=== PATIENT | female | born 1955 | race Caucasian/White ===

== ENCOUNTER 2025-11-01 14:39 | Inpatient (IN) ==
[2025-11-01 15:47] LABS: Appearance Urine Clear (Clear); Bacteria Urine Automated None Seen (None Seen); Glucose Urine UA Negative (Negative); RBC Urine Automated 0-2 /hpf (0-2); WBC Urine Automated 0-5 /hpf (0-5)
[2025-11-01 16:04] LABS: Hematocrit (blood only) 26.7 % (37.0-47.0); Hemoglobin 9.0 g/dL (12.0-16.0); Mean Corpuscular Hemoglobin 32.7 pg (25.0-34.0); Mean Corpuscular Volume 97.1 fL (80.0-100.0); Platelet Count 41 K/uL (130-400); RDW Standard Deviation 61.4 fL (36.4-46.3); Red Blood Count 2.75 M/uL (4.20-5.40); White Blood Count 0.44 K/ul (4.8-10.8)
[2025-11-01 16:07] LABS: Alanine Aminotransferase 7 U/L (7-52); Albumin Globulin Ratio 1.3 (0.9-2); Albumin Level 3.9 gm/dl (3.4-5.0); Alkaline Phosphatase 82 U/L (34-104); Anion Gap 7 (3-11); Bilirubin,Total 0.7 mg/dl (0.2-1.0); Blood Urea Nitrogen 14 mg/dl (6-23); Calcium 9.2 mg/dl (8.6-10.3); Carbon Dioxide 22 mmol/L (21-32); Chloride 109 mmol/L (98-107); Globulin 3.1 gm/dl (2.5-4.0); Glucose 102 mg/dl (70-99(Fasting)); Magnesium 2.0 mg/dl (1.7-2.4); Potassium 4.1 mmol/L (3.5-5.1); Sodium 138 mmol/L (136-145); Total Protein 7.0 gm/dl (6.0-8.3)
--- NOTE | 2025-11-01 16:15 | Emergency Department Note ---
Impression & Plan Neutropenia, Pancytopenia, Triple negative breast carcinoma ED Provider Note NAME: MIRNA FINCH AGE: 69 SEX: F : 1955 ARRIVES VIA: Walk-In INFORMANT: Patient, ED PROVIDER(S): Alvarado Morales DO CHIEF COMPLAINT: Low white blood cell count HPI: The patient is a 69-year-old female who was referred to the emergency department by her primary oncologist. Patient was noted to have a low white blood cell count and was told to come to the emergency department. She is currently being treated for urinary tract infection. She is being treated for breast cancer as well. She had a seizure yesterday and was seen at an outside facility. She reportedly had a blocked blood vessel but the patient was not seen here and she is not sure of exactly what the findings were. The patient denies having any fever or hemoptysis. She denies having any cough. ROS: See above HPI for pertinent positives & negatives. A total of 10 systems reviewed and were otherwise negative. PAST MEDICAL HISTORY: See Below PAST SURGICAL HISTORY: See Below FAMILY HISTORY: See Below SOCIAL HISTORY: See Below HOME MEDICATIONS: See Below ALLERGIES: See Below VITALS: See Below PHYSICAL EXAMINATION: GENERAL: Patient is awake alert in no acute distress patient is resting comfortably and showing no signs of anxiety EYES: The conjunctivae are pale. The pupils are round and reactive. EARS, NOSE, MOUTH AND THROAT: The nose is without any evidence of any deformity. NECK: The neck is nontender and supple. RESPIRATORY: Normal respiratory effort is noted there is no evidence of wheezing rhonchi or rales CARDIOVASCULAR: Regular rate and rhythm noted there no murmurs rubs or gallops normal S1 normal S2. GASTROINTESTINAL: The abdomen is soft. Abdomen is nontender. MUSCULOSKELETAL/EXTREMITIES: There is no evidence of gross deformity full range of motion is noted in the hips and shoulders. SKIN: There is no obvious evidence of any rash. There are no petechiae, pallor or cyanosis noted. NEUROLOGIC: Patient is awake alert and oriented x3 strength is symmetric patellar reflexes are 2+ bilaterally MEDICAL DECISION MAKING: The patient is a 69-year-old female who presented to the emergency department for an evaluation. The patient was sent to the emergency department by her oncologist. The patient's been having problems with weakness. She also had a possible episode of seizure recently. She was sent to the emergency department for further evaluation. I discussed the patient's laboratory and radiographic studies with her. Given her degree of neutropenia the patient was felt to be a better candidate for inpatient management. She was treated with IV antibiotics and I discussed her condition with the on-call [facility] hospitalist. They have agreed to evaluate the patient in the emergency department for further management and disposition. Triage Nursing notes reviewed. Prior medical records reviewed Vital Signs: reviewed and remarkable for no significant abnormalities Differential diagnosis: Infection, dehydration, metabolic abnormality, hypo/hyperglycemia, electrolyte disturbance, anemia, hypoxia, cardiac sources, intracerebral event, toxicologic, neurologic, as well as other pathologies. ER treatment provided: See below Diagnostics interpreted by me: ECG: EKG was obtained in the emergency department. My interpretation is normal sinus rhythm at 84 bpm. There is no ectopy. There is no acute ST segment abnormalities noted. QTc was 408 ms. Cardiac Monitoring: An order was placed for continuous cardiac monitoring. The monitor shows a rate of 81 bpm with sinus rhythm. Laboratory studies: As stated above and show below. Imaging studies: See below. Radiographic imaging was reviewed by myself Consultation(s): I discussed this case with Dr. To who is on for the [facility] hospitalist group. Past Med/Surg History Problem List (Updated 11/01/25 @ 23:01 by Alvarado Morales DO) Neutropenia (Acute) Pancytopenia (Acute) Anxiety UTI (urinary tract infection) Neutropenia Lymph node enlargement Breast cancer, left Abnormal magnetic resonance imaging of left breast Abnormal mammogram of left breast Triple negative breast carcinoma (Acute) Abnormal MRI, breast Invasive ductal carcinoma of left breast Hyperlipemia Hypertension Schizophrenia Medical History Hypothyroidism History of COVID-19 "Few years ago", [facility] No residual issues Lymph node enlargement Schizophrenia Hypertension Per records, patient denies Hyperlipemia Per records, patient denies Invasive ductal carcinoma of left breast Dx 05/2025; triple negative breast carcinoma Surgical History Port-A-Cath in place (07/14/25) Insertion Access Port with Fluoroscopy(Left) - Latasha Arzola DO History of surgery on arm (10/05/19) Closed Reduction Perc Pinning Right Distal Radius Previous section x3 Hx of colonoscopy (01/23/16) Family History Grandfather Lung cancer Social History Smoking Status: Former smoker Second Hand Exposure: Yes (hx growing up); Do You Dip or Chew Tobacco: No; Hx Alcohol Use: Yes (no longer drinks) Hx Substance Use: No Preferred Language: Tunisian Communication Ability: Effective [employer] Se[employer] Required: No Beliefs That Will Affect Care: None marital status: / Current Living Situation: Family current occupational status: unemployed How many Children do You have: 3 Feels Safe at Home: Yes during the past year weight has: remained stable Allergies Allergies Allergy/AdvReac Type Severity Reaction Status Date / Time No Known Allergies Allergy Verified 07/14/25 07:15 Home Meds Home Medications Medication Instructions Recorded Confirmed haloperidol 0.5 mg tablet 0.5 mg PO TID 05/31/25 11/01/25 levothyroxine 25 mcg tablet 25 mcg PO QAM 05/31/25 11/01/25 sertraline 100 mg tablet 100 mg PO QAM 05/31/25 11/01/25 olanzapine 2.5 mg tablet 0 mg PO DAILY 11/01/25 11/01/25 Results & Data (ED) Vital Signs Vital Signs - 24 hr 11/01/25 14:45 11/01/25 17:55 11/01/25 18:00 Temperature 36.6 C Temperature Source Temporal Artery Scan Pulse Rate 99 H 73 72 Pulse Rate from SpO2 Sensor Respiratory Rate 18 24 Respiratory Effort / Characteristics Non-Labored Spontaneous Respiratory Depth Normal Blood Pressure 110/74 117/70 Blood Pressure Mean 86 82 Pulse Oximetry 99 96 Oxygen Delivery Method Room Air Room Air Sepsis Recent Fever Within 48 Hours No Sepsis New/Unexplained Change in Mental Status No Sepsis Action Taken by Nursing No Action Required 11/01/25 19:00 Temperature Temperature Source Pulse Rate 80 Pulse Rate from SpO2 Sensor 79 Respiratory Rate 15 Respiratory Effort / Characteristics Respiratory Depth Blood Pressure 128/82 Blood Pressure Mean 97 Pulse Oximetry 98 Oxygen Delivery Method Room Air Sepsis Recent Fever Within 48 Hours Sepsis New/Unexplained Change in Mental Status Sepsis Action Taken by [facility] Medications Current Medication List: was personally reviewed by me Laboratory Data Attestation: I reviewed the patient's lab results. 12/23/25 15:18 11/01/25 15:18 Lab Results 11/01/25 11/01/25 Range/Units 15:18 18:02 WBC 0.44 L* (4.8-10.8) K/ul RBC 2.75 L (4.20-5.40) M/uL Hgb 9.0 L (12.0-16.0) g/dL Hct 26.7 L (37.0-47.0) % MCV 97.1 (80.0-100.0) fL MCH 32.7 (25.0-34.0) pg MCHC 33.7 (32.0-36.0) g/dL RDW Std Deviation 61.4 H (36.4-46.3) fL RDW Coeff of Rylie 17.1 H (11.5-14.5) % Plt Count 41 L (130-400) K/uL MPV 12.1 (9.4-12.4) fL Neut # (Auto) < 0.50 L* (1.40-6.50) K/uL Sodium 138 (136-145) mmol/L Potassium 4.1 (3.5-5.1) mmol/L Chloride 109 H (98-107) mmol/L Carbon Dioxide 22 (21-32) mmol/L Anion Gap 7 (3-11) BUN 14 (6-23) mg/dl Creatinine 0.52 L (0.6-1.2) mg/dl Est Cr Clr Drug Dosing Not Reportable eGFR 99.89 BUN/Creatinine Ratio 26.9 H (10-20) Glucose 102 H (70-99(Fasting)) mg/dl Lactate 1.6 (0.4-2.0) mmol/L Calcium 9.2 (8.6-10.3) mg/dl Magnesium 2.0 (1.7-2.4) mg/dl Total Bilirubin 0.7 (0.2-1.0) mg/dl AST 11 L (13-39) U/L ALT 7 (7-52) U/L Alkaline Phosphatase 82 (34-104) U/L Troponin I High Sens 2.6 (0-14) pg/ml C-Reactive Protein 1.48 H (0-0.5) mg/dl Total Protein 7.0 (6.0-8.3) gm/dl Albumin 3.9 (3.4-5.0) gm/dl Globulin 3.1 (2.5-4.0) gm/dl Albumin/Globulin Ratio 1.3 (0.9-2) Procalcitonin 0.19 (0-0.5) ng/ml Urine Color Dark Yellow Urine Appearance Clear (Clear) Urine pH 5.0 (4.5-7.5) Ur Specific [place] 1.029 (1.000-1.030) Urine Protein Trace H (Negative) Urine Glucose (UA) Negative (Negative) Urine Ketones Trace H (Negative) Urine Blood 1+ H (Negative) Urine Nitrite Negative (Negative) Urine Bilirubin 1+ H (Negative) Urine Urobilinogen Negative (Negative) Ur Leukocyte Esterase Trace H (Negative) Urine WBC (Auto) 0-5 (0-5) /hpf Urine RBC (Auto) 0-2 (0-2) /hpf U Hyaline Cast (Auto) 3-5 H (0-2) /lpf U Epithel Cells (Auto) 3-5 H (0-2) /hpf Urine Bacteria (Auto) None Seen (None Seen) Urine Mucus Present A (None Prsent) Urine Comment Administered Medications Vancomycin HCl 1,500 mg/ (Sodium Chloride) 530 mls @ 200 mls/hr IV NOW ONE Stop: 11/02/25 00:08 Last Admin: 11/01/25 22:07 Dose: 200 mls/hr Documented By: GUEVARA Discontinued Medications Filgrastim (Filgrastim 480 Mcg/1.6 Ml Vial) 480 mcg SC ONE ONE Stop: 11/01/25 21:13 Last Admin: 11/01/25 22:04 Dose: 480 mcg Documented By: GUEVARA Haloperidol (Haloperidol 0.5 Mg Tab) 0.5 mg PO TID PENELOPE Stop: 12/01/25 21:29 Last Admin: 11/01/25 22:04 Dose: 0.5 mg Documented By: GUEVARA Haloperidol (Haloperidol 0.5 Mg Tab) 0.5 mg PO NOW STA Stop: 11/01/25 22:24 Last Admin: 11/01/25 22:35 Dose: 0.5 mg Documented By: GUEVARA Cefepime HCl (Maxipime 2000mg) 2,000 mg in 20 mls @ 5 mls/min IV NOW STA; Protocol Stop: 11/01/25 16:11 Last Admin: 11/01/25 16:39 Dose: 5 mls/min Documented By: SUSHIL Ioversol (Optiray 320 125ml) 119 ml IV ONCE ONE Stop: 11/01/25 17:23 Last Admin: 11/01/25 17:22 Dose: 119 ml Documented By: KIERA Imaging Data Attestation: I personally reviewed and interpreted this imaging study as follows: My Impression: CT of the brain was obtained in the emergency department. My interpretation is no free air or definite infiltrate, final report below. Radiologist's Impression: Head CT 11/01/25 15:16 EXAM: CT Head Without Intravenous Contrast INDICATION: Seizure yesterday. Recently diagnosed with blood clot in the neck. Urinary tract infection. TECHNIQUE: Axial computed tomography images of the head/brain without intravenous contrast. Sagittal and/or coronal reformats are provided. Sagittal and coronal reformatted images were created and reviewed. This CT exam was performed using one or more of the following dose reduction techniques: automated exposure control, adjustment of the mA and/or kV according to patient size, and/or use of iterative reconstruction technique. COMPARISON: No relevant prior studies available. FINDINGS: Limitations: None. Brain and extra-axial spaces: There is age appropriate cortical atrophy and chronic ischemic periventricular white matter hypodensity. No acute infarct, hemorrhage or mass noted. Bones/joints: No acute changes. Soft tissues: No acute abnormality noted. Vasculature: No acute abnormality noted. Sinuses: No layering fluid in the visualized portions of the paranasal sinuses. Mastoid air cells: No mastoid effusion. Orbits: No acute abnormality noted. IMPRESSION: Cerebral atrophy. No acute changes. ACT 112: N/A Electronically signed by Jessica Corbett 11-01-2025 6:26 PM Head CTA 11/01/25 15:16 EXAM: CT Angiography Head and Neck With Intravenous Contrast INDICATION: Seizure yesterday. Fall. TECHNIQUE: [place]/head and neck CT angiography protocol performed with intravenous contrast. Sagittal and coronal reformatted images were created and reviewed. This CT exam was performed using one or more of the following dose reduction techniques: automated exposure control, adjustment of the mA and/or kV according to patient size, and/or use of iterative reconstruction technique. MIP reconstructed images were created and reviewed. CONTRAST: 119 ml of Optiray 320 was administered intravenously. COMPARISON: None. FINDINGS: HEAD: Right anterior cerebral artery: No abnormality noted. No occlusion or significant stenosis. Anterior communicating artery is present. No aneurysm. Right middle cerebral artery: No abnormality noted. No occlusion or significant stenosis. No aneurysm. Right posterior cerebral artery: No abnormality noted. No occlusion or significant stenosis. No aneurysm. Right intracranial internal carotid artery: No abnormality noted. No significant stenosis. No dissection or occlusion. Right intracranial vertebral artery: No abnormality noted. No significant stenosis. No dissection or occlusion. Left anterior cerebral artery: No abnormality noted. No occlusion or significant stenosis. No aneurysm. Left middle cerebral artery: No abnormality noted. No occlusion or significant stenosis. No aneurysm. Left posterior cerebral artery: No abnormality noted. No occlusion or significant stenosis. No aneurysm. Left intracranial internal carotid artery: No abnormality noted. No significant stenosis. No dissection or occlusion. Left intracranial vertebral artery: No abnormality noted. No significant stenosis. No dissection or occlusion. Basilar artery: No abnormality noted. No occlusion or significant stenosis. No aneurysm. Other vasculature: No vascular malformation. NECK: Right common carotid artery: No abnormality noted. No significant stenosis. No dissection or occlusion. Right extracranial internal carotid artery: No abnormality noted. No significant stenosis. No dissection or occlusion. Right external carotid artery: No abnormality noted. No occlusion. Right extracranial vertebral artery: No abnormality noted. No significant stenosis. No dissection or occlusion. Left common carotid artery: No abnormality noted. No significant stenosis. No dissection or occlusion. Left extracranial internal carotid artery: No abnormality noted. No significant stenosis. No dissection or occlusion. Left external carotid artery: No abnormality noted. No occlusion. Left extracranial vertebral artery: No abnormality noted. No significant stenosis. No dissection or occlusion. Thyroid: There is marked heterogeneous nodular and partially calcified appearance of the left thyroid lobe. The right may have been partially removed. Lung apices: No acute abnormality noted. HEAD and NECK: Bones/joints: No significant abnormality. Soft tissues: No abnormality noted. Tubes, lines and devices: Left subclavian central venous port catheter followed to the SVC. Distal extent nonvisible. CAROTID STENOSIS REFERENCE USING NASCET CRITERIA: % ICA stenosis = (1 - narrowest ICA diameter/diameter of distal cervical ICA) x 100. Mild - <50% stenosis. Moderate - 50-69% stenosis. Severe - 70-94% stenosis. Near occlusion - 95-99% stenosis. Occluded - 100% stenosis. IMPRESSION: 1. No angiographic abnormality in the head or neck. 2. Heterogeneous multinodular appearance of the left thyroid. Correlate clinically. ACT 112: N/A Electronically signed by Jessica Corbett 11-01-2025 6:31 PM Neck CTA 11/01/25 15:16 EXAM: CT Angiography Head and Neck With Intravenous Contrast INDICATION: Seizure yesterday. Fall. TECHNIQUE: [place]/head and neck CT angiography protocol performed with intravenous contrast. Sagittal and coronal reformatted images were created and reviewed. This CT exam was performed using one or more of the following dose reduction techniques: automated exposure control, adjustment of the mA and/or kV according to patient size, and/or use of iterative reconstruction technique. MIP reconstructed images were created and reviewed. CONTRAST: 119 ml of Optiray 320 was administered intravenously. COMPARISON: None. FINDINGS: HEAD: Right anterior cerebral artery: No abnormality noted. No occlusion or significant stenosis. Anterior communicating artery is present. No aneurysm. Right middle cerebral artery: No abnormality noted. No occlusion or significant stenosis. No aneurysm. Right posterior cerebral artery: No abnormality noted. No occlusion or significant stenosis. No aneurysm. Right intracranial internal carotid artery: No abnormality noted. No significant stenosis. No dissection or occlusion. Right intracranial vertebral artery: No abnormality noted. No significant stenosis. No dissection or occlusion. Left anterior cerebral artery: No abnormality noted. No occlusion or significant stenosis. No aneurysm. Left middle cerebral artery: No abnormality noted. No occlusion or significant stenosis. No aneurysm. Left posterior cerebral artery: No abnormality noted. No occlusion or significant stenosis. No aneurysm. Left intracranial internal carotid artery: No abnormality noted. No significant stenosis. No dissection or occlusion. Left intracranial vertebral artery: No abnormality noted. No significant stenosis. No dissection or occlusion. Basilar artery: No abnormality noted. No occlusion or significant stenosis. No aneurysm. Other vasculature: No vascular malformation. NECK: Right common carotid artery: No abnormality noted. No significant stenosis. No dissection or occlusion. Right extracranial internal carotid artery: No abnormality noted. No significant stenosis. No dissection or occlusion. Right external carotid artery: No abnormality noted. No occlusion. Right extracranial vertebral artery: No abnormality noted. No significant stenosis. No dissection or occlusion. Left common carotid artery: No abnormality noted. No significant stenosis. No dissection or occlusion. Left extracranial internal carotid artery: No abnormality noted. No significant stenosis. No dissection or occlusion. Left external carotid artery: No abnormality noted. No occlusion. Left extracranial vertebral artery: No abnormality noted. No significant stenosis. No dissection or occlusion. Thyroid: There is marked heterogeneous nodular and partially calcified appearance of the left thyroid lobe. The right may have been partially removed. Lung apices: No acute abnormality noted. HEAD and NECK: Bones/joints: No significant abnormality. Soft tissues: No abnormality noted. Tubes, lines and devices: Left subclavian central venous port catheter followed to the SVC. Distal extent nonvisible. CAROTID STENOSIS REFERENCE USING NASCET CRITERIA: % ICA stenosis = (1 - narrowest ICA diameter/diameter of distal cervical ICA) x 100. Mild - <50% stenosis. Moderate - 50-69% stenosis. Severe - 70-94% stenosis. Near occlusion - 95-99% stenosis. Occluded - 100% stenosis. IMPRESSION: 1. No angiographic abnormality in the head or neck. 2. Heterogeneous multinodular appearance of the left thyroid. Correlate clinically. ACT 112: N/A Electronically signed by Jessica Corbett 11-01-2025 6:31 PM Discharge Plan Visit Data Chief Complaint: Referred by Doctor Stated Complaint: REF BY , CLOGGED ARTERY IN NECK, CHEMO, UTI ED Provider: Alvarado Morales Discharge Problem: Neutropenia, Pancytopenia, Triple negative breast carcinoma Patient Disposition: Admitted As Inpatient Condition: Fair Discharge Instructions Interventions: ED Discharge Assessment Last Done: 11/01/25 21:12
[2025-11-01] MEDS: CEFEPIME 2000MG 2,000 MG/20 ML SYR IV STA (16:26)
[2025-11-01] MEDS: OPTIRAY 320 125ml IV ONE (17:22)
--- NOTE | 2025-11-01 18:29 | CT Scan Report ---
EXAM: CT Head Without Intravenous Contrast INDICATION: Seizure yesterday. Recently diagnosed with blood clot in the neck. Urinary tract infection. TECHNIQUE: Axial computed tomography images of the head/brain without intravenous contrast. Sagittal and/or coronal reformats are provided. Sagittal and coronal reformatted images were created and reviewed. This CT exam was performed using one or more of the following dose reduction techniques: automated exposure control, adjustment of the mA and/or kV according to patient size, and/or use of iterative reconstruction technique. COMPARISON: No relevant prior studies available. FINDINGS: Limitations: None. Brain and extra-axial spaces: There is age appropriate cortical atrophy and chronic ischemic periventricular white matter hypodensity. No acute infarct, hemorrhage or mass noted. Bones/joints: No acute changes. Soft tissues: No acute abnormality noted. Vasculature: No acute abnormality noted. Sinuses: No layering fluid in the visualized portions of the paranasal sinuses. Mastoid air cells: No mastoid effusion. Orbits: No acute abnormality noted. IMPRESSION: Cerebral atrophy. No acute changes. ACT 112: N/A Electronically signed by Jessica Corbett 11-01-2025 6:26 PM
--- NOTE | 2025-11-01 18:31 | CT Scan Report ---
EXAM: CT Angiography Head and Neck With Intravenous Contrast INDICATION: Seizure yesterday. Fall. TECHNIQUE: [place]/head and neck CT angiography protocol performed with intravenous contrast. Sagittal and coronal reformatted images were created and reviewed. This CT exam was performed using one or more of the following dose reduction techniques: automated exposure control, adjustment of the mA and/or kV according to patient size, and/or use of iterative reconstruction technique. MIP reconstructed images were created and reviewed. CONTRAST: 119 ml of Optiray 320 was administered intravenously. COMPARISON: None. FINDINGS: HEAD: Right anterior cerebral artery: No abnormality noted. No occlusion or significant stenosis. Anterior communicating artery is present. No aneurysm. Right middle cerebral artery: No abnormality noted. No occlusion or significant stenosis. No aneurysm. Right posterior cerebral artery: No abnormality noted. No occlusion or significant stenosis. No aneurysm. Right intracranial internal carotid artery: No abnormality noted. No significant stenosis. No dissection or occlusion. Right intracranial vertebral artery: No abnormality noted. No significant stenosis. No dissection or occlusion. Left anterior cerebral artery: No abnormality noted. No occlusion or significant stenosis. No aneurysm. Left middle cerebral artery: No abnormality noted. No occlusion or significant stenosis. No aneurysm. Left posterior cerebral artery: No abnormality noted. No occlusion or significant stenosis. No aneurysm. Left intracranial internal carotid artery: No abnormality noted. No significant stenosis. No dissection or occlusion. Left intracranial vertebral artery: No abnormality noted. No significant stenosis. No dissection or occlusion. Basilar artery: No abnormality noted. No occlusion or significant stenosis. No aneurysm. Other vasculature: No vascular malformation. NECK: Right common carotid artery: No abnormality noted. No significant stenosis. No dissection or occlusion. Right extracranial internal carotid artery: No abnormality noted. No significant stenosis. No dissection or occlusion. Right external carotid artery: No abnormality noted. No occlusion. Right extracranial vertebral artery: No abnormality noted. No significant stenosis. No dissection or occlusion. Left common carotid artery: No abnormality noted. No significant stenosis. No dissection or occlusion. Left extracranial internal carotid artery: No abnormality noted. No significant stenosis. No dissection or occlusion. Left external carotid artery: No abnormality noted. No occlusion. Left extracranial vertebral artery: No abnormality noted. No significant stenosis. No dissection or occlusion. Thyroid: There is marked heterogeneous nodular and partially calcified appearance of the left thyroid lobe. The right may have been partially removed. Lung apices: No acute abnormality noted. HEAD and NECK: Bones/joints: No significant abnormality. Soft tissues: No abnormality noted. Tubes, lines and devices: Left subclavian central venous port catheter followed to the SVC. Distal extent nonvisible. CAROTID STENOSIS REFERENCE USING NASCET CRITERIA: % ICA stenosis = (1 - narrowest ICA diameter/diameter of distal cervical ICA) x 100. Mild - <50% stenosis. Moderate - 50-69% stenosis. Severe - 70-94% stenosis. Near occlusion - 95-99% stenosis. Occluded - 100% stenosis. IMPRESSION: 1. No angiographic abnormality in the head or neck. 2. Heterogeneous multinodular appearance of the left thyroid. Correlate clinically. ACT 112: N/A Electronically signed by Jessica Corbett 11-01-2025 6:31 PM
--- NOTE | 2025-11-01 18:45 | History & Physical Report ---
Date of Service November 01, 2025 Assessment & Plan (1) Neutropenia: (2) UTI (urinary tract infection): (3) Triple negative breast carcinoma: (4) Invasive ductal carcinoma of left breast: Plan Colleen is a pleasant 69yo lady with PMH of triple negative breast cancer currently on carboplatin, paclitaxel, and pembrolizumab neoadjuvant chemotherapy and Schizophrenia who was referred to the ED by her primary oncologist due to abnormal labs. She was noted to have neutropenia and pancytopenia. CT imaging notable for cerebral atrophy, Heterogeneous multinodular appearance of the left thyroid, but no angiographic abnormality in the head or neck. She is being admitted and managed for neutropenia and pancytopenia. #Neutropenia #Pancytopenia likely secondary to chemotherapy, last chemotherapy session 2 weeks ago -admit to med-tele -consult hematology-oncology -neutropenic precautions -cefepime 2000mg bid IV -vancomycin 1500mg loading dose once, consider further dosing/adjustments based on results of MRSA swab -Neupogen 480mg once -follow blood cultures -AM labs #UTI? complicated in setting of pancytopenia above -UA unimpressive for UTI here despite not starting tx for diagnosed UTI 10/31 at another facility -follow urine culture -follow CT abdomen/pelvis without contrast -abx as above #Triple negative breast cancer -follows with Dr. Davis at [facility] -on olanzapine 2.5mg 4 day course for post chemo nausea, hold while here #SIRS + -HR >90bpm on admission, WBC 0.44 -inflammatory markers: CRP 1.4, procalcitonin 0.19 -rest per above #Schizophrenia -continue haloperidol 0.5mg tid #Hypothyroidism -levothyroxine 25mcg/daily #Anxiety -sertraline 100mg qdaily Dispo: med-tele Diet: regular VTE prophylaxis: chemical prophylaxis contraindicated at this time due to thrombocytopenia. will put on SCDs. History of Present Illness Chief Complaint: Abnormal Labs Primary Care Provider: LEMUEL Person Colleen is a pleasant 69yo lady with PMH of triple negative breast cancer currently on carboplatin, paclitaxel, and pembrolizumab neoadjuvant chemotherapy and Schizophrenia who was referred to the ED by her primary oncologist due to abnormal labs. The pt was in her usual state of health until Friday when she went for a PET scan. Afterwards, she had a headache and felt dizzy. Then yesterday, she was at a store when she fell and was suspected to have seizure- like activity. She was then transferred to another medical facility where they diagnosed her with a UTI but the pt was unable to oyster picker the antibiotic as she was sent here due to the labs. She denies previous history of seizures, tongue- biting, tonic-clonic activity, and urination or defecation during that episode. She does have a history of feeling lightheaded upon standing or quick movements. She denies fever, chills, sick contacts, SOB, CP, abdominal pain, dysuria, skin rashes, or leg swelling. Allergies Allergy/AdvReac Type Severity Reaction Status Date / Time No Known Allergies Allergy Verified 07/14/25 07:15 Home Medications Medication Instructions Recorded Confirmed Type haloperidol 0.5 mg tablet 0.5 mg PO TID 05/31/25 11/01/25 History levothyroxine 25 mcg tablet 25 mcg PO QAM 05/31/25 11/01/25 History sertraline 100 mg tablet 100 mg PO QAM 05/31/25 11/01/25 History olanzapine 2.5 mg tablet 0 mg PO DAILY 11/01/25 11/01/25 History Past Med/Surg History Problem List (Updated 11/01/25 @ 23:01 by Alvarado Morales DO) Neutropenia (Acute) Pancytopenia (Acute) Anxiety UTI (urinary tract infection) Neutropenia Lymph node enlargement Breast cancer, left Abnormal magnetic resonance imaging of left breast Abnormal mammogram of left breast Triple negative breast carcinoma (Acute) Abnormal MRI, breast Invasive ductal carcinoma of left breast Hyperlipemia Hypertension Schizophrenia Medical History Hypothyroidism History of COVID-19 "Few years ago", [facility] No residual issues Lymph node enlargement Schizophrenia Hypertension Per records, patient denies Hyperlipemia Per records, patient denies Invasive ductal carcinoma of left breast Dx 05/2025; triple negative breast carcinoma Surgical History Port-A-Cath in place (07/14/25) Insertion Access Port with Fluoroscopy(Left) - Latasha Arzola DO History of surgery on arm (10/05/19) Closed Reduction Perc Pinning Right Distal Radius Previous section x3 Hx of colonoscopy (01/23/16) Family History Grandfather Lung cancer Social History Smoking Status: Former smoker Second Hand Exposure: Yes (hx growing up); Do You Dip or Chew Tobacco: No; Hx Alcohol Use: No Hx Substance Use: No Preferred Language: Dutch Communication Ability: Effective [employer] Tester Required: No Beliefs That Will Affect Care: None marital status: / Current Living Situation: Significant Other current occupational status: unemployed How many Children do You have: 3 Feels Safe at Home: Yes during the past year weight has: remained stable Assistive Devices: None Review of Systems Review of Systems: per HPI Physical Exam Physical Exam: GA: well groomed, well nourished in no apparent distress. AAOx3 HEENT: head normocephalic, atraumatic. EOMI. nares patent. RESP: vesicular breath sounds b/l. No wheezes, rhonchi, or rales CARDIOVASCULAR: S1 and S2 heard. No murmurs, rubs, or gallops. Radial pulses 2+ b/l RRR GI: Normoactive bowel sounds, no tenderness or masses felt to palpation MSK: no gross abnormalities or focal deficits SKIN: warm, dry, no edema PSYCH: appropriate mood and affect NEURO: no focal deficits. speech fluent. CN 2-12 intact. UE and LE strength 5/5 b/l Results & Data Results & Data Vital Signs (Past 12 Hours) Vital Signs Temp Pulse Resp BP Pulse Ox O2 Del Method 11/01/25 18:00 72 24 117/70 96 Room Air 11/01/25 17:55 73 11/01/25 14:45 36.6 C 99 H 18 110/74 99 Room Air Code Status & VTE Plan Code Status full code Supervising Physician Co-Signing Physician Notes Attending addendum: I have physically seen this patient, have supervised the medical residents activities, and agree with the H&P unless as otherwise noted. Assessment and Plan: The patient is a 69-year-old female with a past medical history including triple negative breast cancer on neoadjuvant chemotherapy as noted, schizophrenia, hyperlipidemia, and hypertension. She was seen at [facility] emergency department yesterday, for seizure-like activity, was found to have urinary tract infection, and was sent home. She had not been able to oyster picker the antibiotic called into her pharmacy yet. Her last chemotherapy was 2 weeks ago, and next chemotherapy due on 11/15/2025. Her oncologist has referred her to the emergency department today due to abnormal labs, suggesting neutropenia and pancytopenia. Imaging in the emergency department included a normal CT scan of head, and CTA of head and neck only significant for known left thyroid nodules. Neutropenia/pancytopenia- ANC less than 0.50 Patient with significant weakness and fatigue and urine questionable for infection. Cefepime 2 g IV every 12 hours Vancomycin IV per pharmacokinetic monitoring Neupogen 480 mg subcu x 1 Follow-up labs in a.m. Follow urine culture and sensitivity Follow blood culture and sensitivity Repeat CBC with differential and chemistry profile in the a.m. Neutropenic precautions Order CT scan abdomen pelvis to look for possible source of infection Triple negative breast cancer- Follows with Dr. Davis Schizophrenia/anxiety- Patient takes Haldol 0.5 mg in the morning and 1 mg at bedtime Continue sertraline 100 mg daily Hypothyroidism- Continue levothyroxine Resident Activity Tracking Resident Involvement: Resident Care Provided Care Provided: Adult Hospital Medicine
--- NOTE | 2025-11-01 18:55 | Electrocardiogram Report ---
Test Reason : Blood Pressure : */* mmHG Vent. Rate : 84 BPM Atrial Rate : 84 BPM P-R Int : 144 ms QRS Dur : 76 ms QT Int : 346 ms P-R-T Axes : 52 2 16 degrees QTcB Int : 408 ms Normal sinus rhythm Normal ECG When compared with ECG of 14-Jul-2025 07:55, No significant change was found Confirmed by Arie Lorenzana ([id number]) on 11/01/2025 6:55:16 PM Referred By: Confirmed By: Arie Lorenzana
[2025-11-01] MEDS ORDERED: VANCOMYCIN CONSULT ACTIVE PRN (21:12)
[2025-11-01] MEDS ORDERED: ACETAMINOPHEN 325 MG TAB PO PRN (21:12)
[2025-11-01] MEDS ORDERED: POLYETHYLENE (MIRALAX) 17 GM PACK PO PRN (21:12)
[2025-11-01] MEDS ORDERED: ONDANSETRON INJ 2 MG/ML 2 ML VIAL IV PRN (21:12)
[2025-11-01] MEDS ORDERED: ALUMINUM/MAGNESIUM SUSP 30 ML UDC PO PRN (21:12)
[2025-11-01] MEDS: FILGRASTIM 480 MCG/1.6 ML VIAL SC ONE (22:04)
[2025-11-01] MEDS: VANCOMYCIN HCL 1,500 MG in SODIUM CHLORIDE 0.9% 500 ML IV ONE (22:07)
--- NOTE | 2025-11-02 01:26 | Pharmacy Report ---
Pharmacy PK ABX Note - Date of Service November 02, 2025 - Assessment and Plan Assessment 69 year old F receiving vancomycin/cefepime for treatment of neutropenia secondary to chemotherapy 2 weeks ago and was sent to the hospital per her primary oncologist. Pertinent microbiologic data includes: urine and blood cultures pending. Day # 1 of antimicrobial therapy. Plan Vancomycin * Loading dose: 1500 mg IV x 1 * Maintenance dose: 750 mg IV every 8 hours * Regimen is predicted to achieve target AUC/JACKI of 400-600 mg/L.hr * Trough level ordered for: 11/03/25 @ 0530 Pharmacy will continue to follow and will adjust dose/frequency as necessary. Thank you. Pharmacy has transitioned to AUC monitoring for vancomycin. AUC/JACKI is the preferred PK/PD target and is associated with decreased risk of nephrotoxicity compared to traditional trough targets.
--- NOTE | 2025-11-02 02:06 | CT Scan Report ---
Exam(s): CT ABDOMEN + PELVIS Without Contrast EXAM: CT Abdomen and Pelvis Without Intravenous Contrast CLINICAL HISTORY: Reason for exam: renal infeciton. TECHNIQUE: Axial computed tomography images of the abdomen and pelvis without intravenous contrast. CTDI is 21.16 mGy and DLP is 1040 mGy-cm. Automated exposure control was utilized for the study. A dose lowering technique was utilized adhering to the principles of ALARA. COMPARISON: No relevant prior studies available. FINDINGS: Lung bases: Unremarkable. No mass. No consolidation. ABDOMEN: Liver: Unremarkable. Gallbladder and bile ducts: Unremarkable. No calcified stones. No ductal dilation. Pancreas: Unremarkable. No ductal dilation. Spleen: Unremarkable. No splenomegaly. Adrenals: Unremarkable. No mass. Kidneys and ureters: Both kidneys opacify with and excrete contrast in a normal symmetric fashion. Simple 3.7 cm left renal cyst. No follow-up of this simple cyst is necessary. No obstructing stones. No hydronephrosis. Stomach and bowel: Diverticulosis without evidence of diverticulitis. No obstruction. PELVIS: Appendix: No findings to suggest acute appendicitis. Bladder: Unremarkable. No stones. Reproductive: Unremarkable as visualized. ABDOMEN and PELVIS: Intraperitoneal space: Unremarkable. No free air. No significant fluid collection. Bones/joints: No acute fracture. No dislocation. Soft tissues: Unremarkable. Vasculature: Unremarkable. No abdominal aortic aneurysm. Lymph nodes: Unremarkable. No enlarged lymph nodes. IMPRESSION: No acute findings in the abdomen or pelvis. Both kidneys opacify within excrete contrast in a normal symmetric fashion Electronically signed by: Nagi Fontanez MD 11/02/25 02:05 AM
[2025-11-02] MEDS: CEFEPIME 2000MG 2,000 MG/20 ML SYR IV SCH (03:26)
[2025-11-02] MEDS: VANCOMYCIN 750 MG in SODIUM CHLORIDE 0.9% 250 ML IV SCH (05:42)
[2025-11-02 05:59] LABS: Hematocrit (blood only) 23.7 % (37.0-47.0); Hemoglobin 7.9 g/dL (12.0-16.0); Mean Corpuscular Hemoglobin 32.5 pg (25.0-34.0); Mean Corpuscular Volume 97.5 fL (80.0-100.0); Platelet Count 38 K/uL (130-400); RDW Standard Deviation 60.0 fL (36.4-46.3); Red Blood Count 2.43 M/uL (4.20-5.40); White Blood Count 0.48 K/ul (4.8-10.8)
[2025-11-02] MEDS: LEVOTHYROXINE SODIUM 25 MCG TABLET PO SCH (06:11)
--- NOTE | 2025-11-02 06:47 | Hospitalist Progress Note ---
Date of Service November 02, 2025 Assessment & Plan (1) Neutropenia: (2) UTI (urinary tract infection): (3) Triple negative breast carcinoma: (4) Invasive ductal carcinoma of left breast: (5) Hyperlipemia: (6) Schizophrenia: (7) Anxiety: (8) Hypothyroidism: (9) Pancytopenia: Plan Colleen is a pleasant 69yo lady with PMH of triple negative breast cancer currently on carboplatin, paclitaxel, and pembrolizumab neoadjuvant chemotherapy and Schizophrenia who was referred to the ED by her primary oncologist due to abnormal labs. She was noted to have neutropenia and pancytopenia. Clinically she looks stable so far. 2 days prior to ED visit she had an episode of possible seizure like activity and was taken to [facility]. She was told she had blockage somewhere in vessel and was not given any blood thinner per patient. CT imaging( CT head, AT angio head and neck) notable for cerebral atrophy, Heterogeneous multinodular appearance of the left thyroid, but no angiographic abnormality in the head or neck. . Admitted for inpatient management for Absolute neutrophil count being below 500. She is currently being treated with prophylactic antibiotic and Neupogen w/o identified source of infection #Neutropenia with Pancytopenia *2/2 myelosuppression effect of recent chemotherapy, last chemotherapy session 2 weeks ago. The combination ofcarboplatin and paclitaxel is know to cause myelosuppression as a common side effect. -Fortunately patient w/o infection, does seem stable, No clinical signs of infection, no identified focus on multiple imaging. Labs: WBC: 0.48, ANC: <500, Hb: 7.9, CRP: 1.48, Procal: Normal range Plan: Continue Prophylactic regimen for ANC< 500. I do not think she needs to be on vancomycin, MRSA nares is negative. No know MRSA in past. Continue Cefepime 2000mg bid IV Neupogen 480mg once daily. Neupogen usually takes few day to have sustained improvement in ANC. Hence will continue daily. AM labs: daily CBC, BMP Continue neutropenia precaution; frequent handwashing, limit contact #Segmental PE on OSH record. - CT chest was done on [facility] 2 days ago. - Reviewed reporting today: possible small hypodense filling defect in posterior segmental branch of right lower lobe of lungs. - Patient not having any chest pain, SOB; no right heart strain clinically. Plan: Keep eye on sx. If symptomatic, will repeat CT PE protocol. Pt is not right candidate for heparin given her platelet number. #Questionable UTI on admission I do not think patient has UTI, despite being told she had UTI in previous hospital. Urine Cs: no growth in 24 hours, w/o symptoms of UTI. Pt does endorse h/o some leakage but dating back to couple months ago, which I do not think is because of UTI. #Triple negative breast cancer -follows with Dr. Davis at [facility]. Now on neoadjuvant chemotherapy. #Schizophrenia -continue haloperidol 0.5mg tid #Hypothyroidism -levothyroxine 25mcg/daily #Anxiety -sertraline 100mg q daily Dispo: Pending stabilization. Diet: regular VTE prophylaxis: SCDs/ thrombocytopenia precludes heparin. . Admission and Anticipated Discharge Date Admission Date: November 01, 2025 Subjective Colleen is 69 yo female recently diagnosed as triple negative breast cancer, under neoadjuvant chemotherapy currently. She presented to ED after she was informed about very low WBC numbers by her oncology team. Before this, 2 days prior patient had visited [facility] for possible seizure. Colleen and her on bedside mentioned they were told that they had some blockage/ clot in vein showing neck area, but were not given any blood thinner. They were not told which blood vessel exactly it was. They left AMA from as they felt they were taking too long for the management. Yesterday, blood test were reviewed by oncologic team and they were suggested to come to [facility] ED. No fever, SOB, CP, No headache, no cough. Denies belly pain, burning urine, nausea, vomiting. No skin lesion, ear ache. Eats generally ok, no change in appetite recently. Has completed 3 months of neoadjuvant chemo. Some make her really sick, some she can tolerate as per pt. Review of Systems Review of Systems: per HPI Physical Exam Physical Exam: Constitutional: Frail appearing, No acute distress, Pale looking. HEENT: Atraumatic, Normocephalic, No conjunctival injection CVS: S1 S2 no murmur, Regular Rhythm, no LE edema Respiratory: BL equal air entry with NVBS. No rhonchi, wheezes, or crackles. No increased work of breathing GI: Soft, Nondistended, Nontender, Normal Bowel sounds + MSK: No gross deformities noted Skin: Warm, Dry, No rashes Neuro: Alert, Oriented to TPP, No Focal deficit Psych: Mood and Affect congruent, Cooperative on exam Results & Data Results & Data Vital Signs (Past 12 Hours) Vital Signs Temp Pulse Pulse Resp BP BP Pulse Ox 11/02/25 05:43 37.1 C 104 H 18 113/76 99 11/02/25 04:30 92 H 21 123/70 98 11/02/25 04:00 118/57 L 11/02/25 04:00 76 21 118/57 L 92 11/02/25 03:30 96 H 16 119/75 98 11/02/25 03:00 93 H 20 122/65 93 11/02/25 02:30 94 H 16 119/56 L 95 11/02/25 02:00 92 H 19 106/53 L 93 11/02/25 01:30 84 17 115/61 97 11/02/25 01:00 100 H 22 104/54 L 99 11/02/25 00:56 11/02/25 00:56 36.9 C 97 H 17 125/73 96 11/02/25 00:30 80 20 125/73 95 11/02/25 00:00 115/65 11/01/25 23:03 82 11/01/25 22:23 36.9 C 11/01/25 22:00 81 20 115/72 95 11/01/25 21:30 77 18 123/75 100 11/01/25 20:30 84 16 99/70 L 97 11/01/25 20:00 88 18 122/67 98 11/01/25 19:42 95 H 17 114/81 99 11/01/25 19:00 80 15 128/82 98 O2 Del Method 11/02/25 05:43 Room Air 11/02/25 04:30 Room Air 11/02/25 04:00 11/02/25 04:00 Room Air 11/02/25 03:30 Room Air 11/02/25 03:00 Room Air 11/02/25 02:30 Room Air 11/02/25 02:00 Room Air 11/02/25 01:30 Room Air 11/02/25 01:00 Room Air 11/02/25 00:56 Room Air 11/02/25 00:56 Room Air 11/02/25 00:30 Room Air 11/02/25 00:00 11/01/25 23:03 11/01/25 22:23 11/01/25 22:00 Room Air 11/01/25 21:30 Room Air 11/01/25 20:30 Room Air 11/01/25 20:00 Room Air 11/01/25 19:42 Room Air 11/01/25 19:00 Room Air Resident Activity Tracking Resident Involvement: Resident Care Provided Care Provided: Adult Hospital Medicine
[2025-11-02 07:12] LABS: Anion Gap 6.0 (3-11); Blood Urea Nitrogen 13.0 mg/dl (6-23); Calcium 8.3 mg/dl (8.6-10.3); Carbon Dioxide 23.0 mmol/L (21-32); Chloride 110.0 mmol/L (98-107); Creatinine Clr Calc Pharmacy 97.7 ml/min; Potassium 3.8 mmol/L (3.5-5.1); Sodium 139.0 mmol/L (136-145)
[2025-11-02] MEDS: SERTRALINE HCL 100 MG TABLET PO SCH (08:06)
[2025-11-02] MEDS: FILGRASTIM 480 MCG/1.6 ML VIAL SC SCH (13:48)
[2025-11-02] MEDS: ONDANSETRON INJ 2 MG/ML 2 ML VIAL IV STA (17:49)
[2025-11-02] MEDS ORDERED: ONDANSETRON INJ 2 MG/ML 2 ML VIAL IV PRN (18:13)
[2025-11-02 19:53] LABS: Hematocrit (blood only) 21.3 % (37.0-47.0); Hemoglobin 7.3 g/dL (12.0-16.0)
--- NOTE | 2025-11-02 20:16 | Billing Data ---
Date of Service November 02, 2025 Coding Level of Care Code 57194 INT INP/OBS CARE
[2025-11-02] MEDS: MELATONIN 3 MG TAB PO PRN (21:01)
[2025-11-02] MEDS ORDERED: SODIUM CHLORIDE 0.9% 100 ML IV PRN (21:36)
[2025-11-02] MEDS: LACTATED RINGER'S 500 ML IV ONE (21:36)
--- NOTE | 2025-11-02 21:51 | Communication Note ---
Date of Service: November 02, 2025 Code bladimir called around 0930 for pt. Went to bedside. Staff noted pt went to bathroom and when about to get up from toilet she had a syncopal episode lasting about 30-40 seconds. They state they were able to catch her so no injuries noted and once they got her to bed she started to come back around. Vitals 140s systolic with HR wnl, oxygenation 97% on RA. BSG 130. Pt diaphoretic but denies pain anywhere, no chest pain or SOB. She states that she is starting to feel better. She states she had an episode similar before. Chart reviewed; last hemoglobin this evening 7.3. Given 500mL LR bolus + ordered 2 units of blood, given 1 unit only. Labs ordered also. Suspect syncope due to vasovagal. Given repeated syncopal episodes per pt/spouse in the room, will do CT head w/o con to assess for other etiologies. Thankfully vitals looked good. Transferred to PCU overnight for closer monitoring. Resident Activity Tracking Resident Involvement: Resident Care Provided Care Provided: Adult Hospital Medicine
[2025-11-02 21:57] LABS: Hematocrit (blood only) 22.0 % (37.0-47.0); Hemoglobin 7.4 g/dL (12.0-16.0)
[2025-11-02 22:17] LABS: Alanine Aminotransferase 7.0 U/L (7-52); Albumin Globulin Ratio 1.3 (0.9-2); Albumin Level 3.4 gm/dl (3.4-5.0); Alkaline Phosphatase 68.0 U/L (34-104); Anion Gap 6.0 (3-11); Bilirubin,Total 0.5 mg/dl (0.2-1.0); Blood Urea Nitrogen 15.0 mg/dl (6-23); Calcium 8.6 mg/dl (8.6-10.3); Carbon Dioxide 23.0 mmol/L (21-32); Chloride 109.0 mmol/L (98-107); Creatinine Clr Calc Pharmacy 86.6 ml/min; Globulin 2.7 gm/dl (2.5-4.0); Glucose 139.0 mg/dl (70-99(Fasting)); Potassium 3.6 mmol/L (3.5-5.1); Sodium 138.0 mmol/L (136-145); Total Protein 6.1 gm/dl (6.0-8.3)
--- NOTE | 2025-11-03 01:36 | CT Scan Report ---
Exam(s): CT HEAD Without Contrast EXAM: CT Head Without Intravenous Contrast CLINICAL HISTORY: Reason for exam: fall/syncope. TECHNIQUE: Axial computed tomography images of the head/brain without intravenous contrast. CTDI is 36.67 mGy and DLP is 624.41 mGy-cm. Automated exposure control was utilized for the study. A dose lowering technique was utilized adhering to the principles of ALARA. COMPARISON: 11/01/2025 FINDINGS: Brain: Age-related parenchymal volume loss. Regions of white matter hypoattenuation, most likely mild chronic small vessel ischemic change. Marquez-white matter differentiation maintained. No parenchymal edema. No acute intracranial hemorrhage or abnormal extra-axial collection. No mass effect or midline shift. Ventricles: No hydrocephalus. Bones/joints: No acute fracture. Soft tissues: Unremarkable. Vasculature: Intracranial atherosclerosis. Sinuses: Unremarkable as visualized. Mastoid air cells: No significant mastoid effusion. IMPRESSION: No acute intracranial process. Electronically signed by: Pascual Taylor M.D. 11/03/25 01:35 AM
[2025-11-03] MEDS ORDERED: VANCOMYCIN LEVEL ONE (05:00)
[2025-11-03 06:55] LABS: Hematocrit (blood only) 22.2 % (37.0-47.0); Hemoglobin 7.6 g/dL (12.0-16.0); Mean Corpuscular Hemoglobin 32.2 pg (25.0-34.0); Mean Corpuscular Volume 94.1 fL (80.0-100.0); RDW Standard Deviation 64.0 fL (36.4-46.3); Red Blood Count 2.36 M/uL (4.20-5.40); White Blood Count 0.48 K/ul (4.8-10.8)
[2025-11-03 07:28] LABS: Platelet Count 23 K/uL (130-400)
[2025-11-03 07:33] LABS: Anion Gap 5.0 (3-11); Blood Urea Nitrogen 14.0 mg/dl (6-23); Calcium 8.3 mg/dl (8.6-10.3); Carbon Dioxide 24.0 mmol/L (21-32); Chloride 110.0 mmol/L (98-107); Creatinine Clr Calc Pharmacy 132.6 ml/min; Potassium 3.5 mmol/L (3.5-5.1); Sodium 139.0 mmol/L (136-145)
[2025-11-03 08:11] VITALS: RESP 18
--- NOTE | 2025-11-03 08:40 | Hospitalist Progress Note ---
Date of Service November 03, 2025 Assessment & Plan (1) Neutropenia: (2) UTI (urinary tract infection): (3) Triple negative breast carcinoma: (4) Invasive ductal carcinoma of left breast: (5) Hyperlipemia: (6) Schizophrenia: (7) Anxiety: (8) Hypothyroidism: (9) Pancytopenia: Plan Colleen is a pleasant 69yo lady with PMH of triple negative breast cancer currently on carboplatin, paclitaxel, and pembrolizumab neoadjuvant chemotherapy and Schizophrenia who was referred to the ED by her primary oncologist due to abnormal labs. She was noted to have neutropenia and pancytopenia. Clinically she looks stable so far. 2 days prior to ED visit she had an episode of possible seizure like activity and was taken to [facility]. She was told she had blockage somewhere in vessel and was not given any blood thinner per patient. CT imaging( CT head, AT angio head and neck) notable for cerebral atrophy, Heterogeneous multinodular appearance of the left thyroid, but no angiographic abnormality in the head or neck. . Admitted for inpatient management for Absolute neutrophil count being below 500. She is currently being treated with prophylactic antibiotic and Neupogen w/o identified source of infection. On 12.24 night she passed out and repeat hemoglobin was dropping down, received 1 U pRBC overnight. PANCYTOPENIA *2/2 myelosuppression effect of recent chemotherapy, last chemotherapy session 2 weeks ago. The combination ofcarboplatin and paclitaxel is know to cause myelosuppression as a common side effect. #Neutropenia -Fortunately patient w/o infection, No clinical signs of infection, no identified focus on multiple imaging. Labs: WBC:0.48, Neutrophil <500 CRP: 1.48, Procal: Normal range Plan: - Continue Prophylactic regimen for ANC< 500. - Continue Cefepime 2000mg bid IV Neupogen 480mg once daily. CGF will basically improve WBC counts only. Anticipate few day to have sustained improvement in ANC. Hence will continue daily. AM labs: daily CBC, BMP Continue neutropenia precaution; frequent handwashing, limit contact #Symptomatic Anemia - Hb dropping down. Initial 7.9----> 7.4( she got transfusion after this). - AM Hb: 7.6, along with minimal nasal bleeding - She was still lightheaded until this morning. I believe she will benefit from another unit of transfusion. My goal is at least 8 for her since she is symptomatic. - Irradiated blood is ideal choice for her as she is getting chemotherapy actively, she got leukoreduced transfusion last night, however will order irradiated one today. - Plan to recheck H and H 2 hours after transfusion ends-- will deiced further need then. #Severe Thrombocytopenia - Platelets dropping down as well. - Platelet: 23k on 11/03/2025-----<38k ( 12.24) - This morning pt has nose bleeding. Plan: Platelet pheresis X 1; expected increase: at least 20K. Recheck platelets 12.26 AM, unless clinical course worsens #Segmental PE on OSH record. - CT chest was done on [facility] on 10/31 - Reviewed reporting on 11/02: possible small hypodense filling defect in posterior segmental branch of right lower lobe of lungs. - Patient not having any chest pain, SOB; no right heart strain clinically. Plan: Keep eye on sx. If symptomatic, will repeat CT PE protocol. Pt is not right candidate for heparin given her platelet number. #Questionable UTI on admission I do not think patient has UTI, despite being told she had UTI in previous hospital. Urine Cs: no growth in 24 hours, w/o symptoms of UTI. Pt does endorse h/o some leakage but dating back to couple months ago, which I do not think is because of UTI. #Triple negative breast cancer -follows with Dr. Davis at [facility]. Now on neoadjuvant chemotherapy. #Schizophrenia -continue haloperidol 0.5mg tid #Hypothyroidism -levothyroxine 25mcg/daily #Anxiety -sertraline 100mg q daily Dispo: Pending stabilization. Diet: regular VTE prophylaxis: SCDs/ thrombocytopenia precludes heparin. . Admission and Anticipated Discharge Date Admission Date: November 01, 2025 Supervising Physician Co-Signing Physician Notes Patient seen and examined, chart reviewed, case discussed with Dr. Rebecca MD and I agree with the assessment and plan as above except as otherwise noted Labs and images reviewed Shweta is seen at the bedside with resident provider. She reports she did have a small nosebleed although was not coughing up blood and has resolved. Endorses some watery eyes and sinus congestion. Still with fatigue and weakness. No ongoing urinary symptoms. Had some adequate rise of her hemoglobin with initial unit of transfusion with a second pending due to concern for some symptoms, tachycardia and less than expected rise with her initial unit and concurrent nosebleed. Given nosebleed/active bleeding and thrombocytopenia 1 unit of ir radiated platelets is also indicated. Do not feel her nosebleed is likely the cause of her low hemoglobin levels as has not had a significant volume from this, suspect pancytopenia in the setting of chemotherapy treatment. Does not show signs of acute GI bleeding, no bloody bowel movements, and BUN is not markedly elevated. She remains neutropenic. Neupogen given 11/02. Remains neutropenic has not yet had response to this. Reporting platelets and hemoglobin levels with transfusions as noted.Check H&H posttransfusion, and 1 additional hgb 6 hours later for stability. On reassessment lungs are diminished but clear, nosebleed appears to have resolved. Agree with above Subjective Colleen is 69 yo female recently diagnosed as triple negative breast cancer, under neoadjuvant chemotherapy currently. She presented to ED after she was informed about very low WBC numbers by her oncology team. Last night was eventful, she receive 1U of blood transfusion for symptomatic anemia, code bladimir was called. She passed out while on toilet, she was not pushing hard, however passed out and called ring. No fall, no trauma. Nose is very dry this morning. They noticed little blood as well. BL tearing of eyes. But not spitting blood. On my repeated question, Colleen denied Lightheadedness at the moment, but she had hard time using bedside potty this morning. Did not pass out again, but could not get out of bed herself to use bedside potty. No transfusion reactions. No fever, SOB, CP, No headache, no cough. Denies belly pain, burning urine, n ausea, vomiting. No skin lesion, ear ache. Ate dinner/ breakfast today Review of Systems Review of Systems: per HPI Physical Exam Physical Exam: Constitutional: Frail appearing, No acute distress, Pale looking. Mediport on left superior chest. HEENT: Atraumatic, Normocephalic, No conjunctival injection CVS: S1 S2 no murmur, Regular Rhythm, no LE edema Respiratory: BL equal air entry with NVBS. No rhonchi, wheezes, or crackles. No increased work of breathing GI: Soft, Nondistended, Nontender, Normal Bowel sounds + MSK: No gross deformities noted Skin: Warm, Dry, No rashes Neuro: Alert, Oriented to TPP, No Focal deficit Psych: Mood and Affect congruent, Cooperative on exam Results & Data Results & Data Vital Signs (Past 12 Hours) Vital Signs Temp Pulse Pulse Pulse Resp BP BP 11/03/25 07:45 36.9 C 76 18 108/67 11/03/25 03:00 72 16 104/66 11/03/25 02:08 73 20 108/67 11/03/25 01:38 37.1 C 77 18 108/70 11/03/25 01:23 37.1 C 81 18 98/63 L 11/03/25 01:06 37.1 C 77 18 100/65 11/02/25 22:30 11/02/25 22:07 84 113/70 11/02/25 22:00 36.9 C 76 18 102/66 11/02/25 21:50 87 11/02/25 21:42 85 Pulse Ox O2 Del Method 11/03/25 07:45 95 Room Air 11/03/25 03:00 93 11/03/25 02:08 94 11/03/25 01:38 94 11/03/25 01:23 93 11/03/25 01:06 95 11/02/25 22:30 Room Air 11/02/25 22:07 11/02/25 22:00 95 Room Air 11/02/25 21:50 11/02/25 21:42 Resident Activity Tracking Resident Involvement: Resident Care Provided Care Provided: Adult Hospital Medicine
[2025-11-03] MEDS ORDERED: SODIUM CHLORIDE 0.9% 100 ML IV PRN ×3 (09:43→10:04)
[2025-11-03] MEDS: SODIUM CHLORIDE 0.65% NA SOLN 45 ML (OCEAN) PRN (10:09)
--- NOTE | 2025-11-03 10:13 | Electrocardiogram Report ---
Test Reason : Blood Pressure : */* mmHG Vent. Rate : 103 BPM Atrial Rate : 103 BPM P-R Int : 158 ms QRS Dur : 76 ms QT Int : 318 ms P-R-T Axes : 58 18 24 degrees QTcB Int : 416 ms Sinus tachycardia Abnormal ECG When compared with ECG of 01-Nov-2025 15:12, T wave inversion now evident in Anterior leads Confirmed by Alvarado Carter ([id number]) on 11/03/2025 10:13:00 AM Referred By: REFERRED SELF Confirmed By: Alvarado Carter
--- NOTE | 2025-11-03 10:13 | Electrocardiogram Report ---
Test Reason : Blood Pressure : */* mmHG Vent. Rate : 103 BPM Atrial Rate : 103 BPM P-R Int : 158 ms QRS Dur : 78 ms QT Int : 322 ms P-R-T Axes : 56 18 24 degrees QTcB Int : 421 ms Sinus tachycardia Abnormal ECG When compared with ECG of 02-Nov-2025 17:46, (unconfirmed) No significant change was found Confirmed by Alvarado Carter ([id number]) on 11/03/2025 10:13:08 AM Referred By: REFERRED SELF Confirmed By: Alvarado Carter
--- NOTE | 2025-11-03 12:38 | Billing Data ---
Date of Service November 03, 2025 Coding Level of Care Code 06637 SUB INP/OBS CARE MIN
[2025-11-03 14:41] LABS: Hematocrit (blood only) 24.4 % (37.0-47.0); Hemoglobin 8.5 g/dL (12.0-16.0)
[2025-11-04 08:25] LABS: Hematocrit (blood only) 26.6 % (37.0-47.0); Hemoglobin 9.2 g/dL (12.0-16.0); Mean Corpuscular Hemoglobin 31.6 pg (25.0-34.0); Mean Corpuscular Volume 91.4 fL (80.0-100.0); Platelet Count 31 K/uL (130-400); RDW Standard Deviation 58.9 fL (36.4-46.3); Red Blood Count 2.91 M/uL (4.20-5.40); White Blood Count 1.33 K/ul (4.8-10.8)
[2025-11-04 08:32] LABS: Anion Gap 6.0 (3-11); Blood Urea Nitrogen 11.0 mg/dl (6-23); Calcium 8.6 mg/dl (8.6-10.3); Carbon Dioxide 26.0 mmol/L (21-32); Chloride 107.0 mmol/L (98-107); Creatinine Clr Calc Pharmacy 116.2 ml/min; Potassium 3.4 mmol/L (3.5-5.1); Sodium 139.0 mmol/L (136-145)
--- NOTE | 2025-11-04 08:40 | Hospitalist Progress Note ---
Date of Service November 04, 2025 Assessment & Plan (1) Neutropenia: (2) UTI (urinary tract infection): (3) Triple negative breast carcinoma: (4) Invasive ductal carcinoma of left breast: (5) Hyperlipemia: (6) Schizophrenia: (7) Anxiety: (8) Hypothyroidism: (9) Pancytopenia: Plan Colleen is a pleasant 69yo lady with PMH of triple negative breast cancer currently on carboplatin, paclitaxel, and pembrolizumab neoadjuvant chemotherapy and Schizophrenia who was referred to the ED by her primary oncologist due to abnormal labs. She was noted to have neutropenia and pancytopenia. 2 days prior to ED visit she had an episode of possible seizure like activity and was taken to [facility]. She was told she had blockage somewhere in vessel and was not given any blood thinner per patient. CT imaging( CT head, AT angio head and neck) notable for cerebral atrophy, Heterogeneous multinodular appearance of the left thyroid, but no angiographic abnormality in the head or neck. Admitted for inpatient management for Absolute neutrophil count being below 500. She is currently being treated with prophylactic antibiotic and Neupogen w/o identified source of infection. On 24 night she passed out and repeat hemoglobin was dropping down. Transfused 2 unit PPRBC after this, with 1U platelet pheresis, with improving hemodynamics and Hb/platelets. PANCYTOPENIA *2/2 myelosuppression effect of recent chemotherapy, last chemotherapy session 2 weeks ago. The combination ofcarboplatin and paclitaxel is know to cause myelosuppression as a common side effect. #Neutropenia -Fortunately patient w/o infection, No clinical signs of infection, no identified focus on multiple imaging. Labs: WBC:0.48, Neutrophil <500( on arrival) Improving WBC:1.3, Neutrophil: 470 CRP: 1.48, Procal: Normal range Plan: - Continue Prophylactic regimen for ANC< 500. Goal: Neutrophils> 1000 for 2 consecutive days. - Continue Cefepime 2000mg bid IV Neupogen 480mg once daily. CGF will basically improve WBC counts only. Anticipate few days to have sustained improvement in ANC. Hence will continue daily. AM labs: daily CBC, BMP Continue neutropenia precaution; frequent handwashing, limit contact #Symptomatic Anemia - s/p 2 u transfusion - hb: 9.2 this AM, No ongoing loss. - I do not anticipate further transfusion at current status since there is no ongoing bleed and pt is farther away from last chemo. - She might benefit from prophylactic Neupogen in next chemo-- would defer to [facility] outpatient. #Severe Thrombocytopenia. - Platelet: 23k on 11/03/2025-----<38k ( .) Improved to 31K today( 11/04) S/P 1 U Platelets pheresis. Trend AM labs. #Segmental PE on OSH record. - CT chest was done on [facility] on 10/31 - Reviewed reporting on 11/02: possible small hypodense filling defect in posterior segmental branch of right lower lobe of lungs. - Patient not having any chest pain, SOB; no right heart strain clinically. Plan: Keep eye on sx. If symptomatic, will repeat CT PE protocol. Pt is not right candidate for heparin given her platelet number. #Questionable UTI on admission I do not think patient has UTI, despite being told she had UTI in previous hospital. Urine Cs: no growth in 24 hours, w/o symptoms of UTI. Pt does endorse h/o some leakage but dating back to couple months ago, which I do not think is because of UTI. #Triple negative breast cancer -follows with Dr. Davis at [facility]. Now on neoadjuvant chemotherapy. #Schizophrenia -continue haloperidol 0.5mg tid #Hypothyroidism -levothyroxine 25mcg/daily #Anxiety -sertraline 100mg q daily Dispo: Pending stabilization. Diet: regular VTE prophylaxis: SCDs/ thrombocytopenia precludes heparin/ encourage ambulation Admission and Anticipated Discharge Date Admission Date: November 01, 2025 Shaan Macias is 69 yo female recently diagnosed as triple negative breast cancer, under neoadjuvant chemotherapy currently. She presented to ED after she was informed about very low WBC numbers by her oncology team. Yesterday was eventful, she receive 2 U of red blood transfusions and one platelet pheresis for symptomatic anemia and thrombocytopenia. Today she is doing better, was eating breakfast when I was in room. She did not have any lightheadedness, dizziness, headache, chest pain. She feels getting better overall, No fever, SOB, CP, No headache, no cough. Denies belly pain, burning urine, nausea, vomiting. No skin lesion, ear ache. Review of Systems Review of Systems: As per HPI Physical Exam Physical Exam: Constitutional: Frail appearing, No acute distress, Pale looking. Mediport on left superior chest. HEENT: Atraumatic, Normocephalic, No conjunctival injection, some old blood, no active bleeding. Oropharynx looks normal too. CVS: S1 S2 no murmur, Regular Rhythm, no LE edema Respiratory: BL equal air entry with NVBS. No rhonchi, wheezes, or crackles. No increased work of breathing GI: Soft, Nondistended, Nontender, Normal Bowel sounds + MSK: No gross deformities noted Skin: Warm, Dry, bruises in IV site. Neuro: Alert, Oriented to TPP, No Focal deficit Psych: Mood and Affect congruent, Cooperative on exam Results & Data Results & Data Vital Signs (Past 12 Hours) Vital Signs Temp Pulse Pulse Resp BP Pulse Ox O2 Del Method 11/04/25 07:35 Room Air 11/04/25 06:59 36.9 C 97 H 18 133/73 96 Room Air 11/04/25 03:37 37.1 C 83 18 108/69 95 Room Air 11/03/25 23:23 36.9 C 81 18 144/72 H 95 Room Air 11/03/25 21:34 92 H Resident Activity Tracking Resident Involvement: Resident Care Provided Care Provided: Adult Hospital Medicine
[2025-11-04 08:46] LABS: Dohle Bodies 1+; Ovalocytes 1+; Polychromasia 1+; Tear Drop Cells 1+; Toxic Granulation 1+
[2025-11-04 09:10] LABS: Immature Granulocytes # (auto) 0.01 K/uL (0.01-0.20); Immature Granulocytes % (auto) 0.8 %
--- NOTE | 2025-11-04 16:53 | Electrocardiogram Report ---
Test Reason : Blood Pressure : */* mmHG Vent. Rate : 90 BPM Atrial Rate : 90 BPM P-R Int : 158 ms QRS Dur : 80 ms QT Int : 330 ms P-R-T Axes : 57 12 31 degrees QTcB Int : 403 ms Normal sinus rhythm Nonspecific ST and T wave abnormality Abnormal ECG When compared with ECG of 02-Nov-2025 17:47, No significant change was found Confirmed by Arie Lorenzana ([id number]) on 11/04/2025 4:52:51 PM Referred By: REFERRED SELF Confirmed By: Arie Lorenzana
--- NOTE | 2025-11-05 06:54 | Hospitalist Progress Note ---
Date of Service November 05, 2025 Assessment & Plan (1) Neutropenia: (2) UTI (urinary tract infection): (3) Triple negative breast carcinoma: (4) Invasive ductal carcinoma of left breast: (5) Hyperlipemia: (6) Schizophrenia: (7) Anxiety: (8) Hypothyroidism: (9) Pancytopenia: Plan Colleen is a pleasant 69yo lady with PMH of triple negative breast cancer currently on carboplatin, paclitaxel, and pembrolizumab neoadjuvant chemotherapy and Schizophrenia who was referred to the ED by her primary oncologist due to abnormal labs. She was noted to have neutropenia and pancytopenia. 2 days prior to ED visit she had an episode of possible seizure like activity and was taken to [facility]. She was told she had blockage somewhere in vessel and was not given any blood thinner per patient. CT imaging( CT head, AT angio head and neck) notable for cerebral atrophy, Heterogeneous multinodular appearance of the left thyroid, but no angiographic abnormality in the head or neck. Admitted for inpatient management for Absolute neutrophil count being below 500. She is currently being treated with prophylactic antibiotic and Neupogen w/o identified source of infection. On 24 night she passed out and repeat hemoglobin was dropping down. Transfused 2 unit PPRBC after this, with 1U platelet pheresis, with improving hemodynamics and Hb/platelets. PANCYTOPENIA *2/2 myelosuppression effect of recent chemotherapy, last chemotherapy session 2 weeks ago. The combination ofcarboplatin and paclitaxel is know to cause myelosuppression as a common side effect. #Neutropenia -Fortunately patient w/o infection, No clinical signs of infection, no identified focus on multiple imaging. Labs: WBC:0.48, Neutrophil <500( on arrival) Improving, ANC: 1100s CRP: 1.48, Procal: Normal range Plan: - Continue Prophylactic regimen for ANC< 500. Goal: Neutrophils> 1000 for 2 consecutive days. - Continue Cefepime 2000mg bid IV Neupogen 480mg once daily. CGF will basically improve WBC counts only. Anticipate few days to have sustained improvement in ANC. Hence will continue daily. AM labs: daily CBC, BMP Continue neutropenia precaution; frequent handwashing, limit contact #Symptomatic Anemia - s/p 2 u transfusion - hb: 9.2 this AM, No ongoing loss. - I do not anticipate further transfusion at current status since there is no ongoing bleed and pt is farther away from last chemo. - She might benefit from prophylactic Neupogen in next chemo-- would defer to [facility] outpatient. #Severe Thrombocytopenia. - Platelet: 23k on 11/03/2025-----<38k ( .) Improved to 31K today( 11/04) S/P 1 U Platelets pheresis. Trend AM labs. #Segmental PE on OSH record. - CT chest was done on [facility] on 10/31 - Reviewed reporting on 11/02: possible small hypodense filling defect in posterior segmental branch of right lower lobe of lungs. - Patient not having any chest pain, SOB; no right heart strain clinically. Plan: Keep eye on sx. If symptomatic, will repeat CT PE protocol. Pt is not right candidate for heparin given her platelet number. #Questionable UTI on admission I do not think patient has UTI, despite being told she had UTI in previous hospital. Urine Cs: no growth in 24 hours, w/o symptoms of UTI. Pt does endorse h/o some leakage but dating back to couple months ago, which I do not think is because of UTI. #Triple negative breast cancer -follows with Dr. Davis at [facility]. Now on neoadjuvant chemotherapy. #Schizophrenia -continue haloperidol 0.5mg tid #Hypothyroidism -levothyroxine 25mcg/daily #Anxiety -sertraline 100mg q daily Dispo: Pending stabilization. Diet: regular VTE prophylaxis: SCDs/ thrombocytopenia precludes heparin/ encourage ambulation Admission and Anticipated Discharge Date Admission Date: November 01, 2025 Shaan Macias is 69 yo female recently diagnosed as triple negative breast cancer, under neoadjuvant chemotherapy currently. She presented to ED after she was informed about very low WBC numbers by her oncology team. Yesterday was eventful, she remained stable. She took shower by herself and she did well. She looks happy about thiss Today she continues to do better, was eating breakfast when I was in room. She did not have any lightheadedness, dizziness, headache, chest pain. She feels getting better overall, No fever, SOB, CP, No headache, no cough. Denies belly pain, burning urine, nausea, vomiting. No skin lesion, ear ache. Discussed with on bedside as well. He does not have any question for me today. Review of Systems Review of Systems: As per HPI Physical Exam Physical Exam: Constitutional: Frail appearing, No acute distress, Pale looking. Mediport on left superior chest. HEENT: Atraumatic, Normocephalic, No conjunctival injection, some old blood, no active bleeding. Oropharynx looks normal too. CVS: S1 S2 no murmur, Regular Rhythm, no LE edema Respiratory: BL equal air entry with NVBS. No rhonchi, wheezes, or crackles. No increased work of breathing GI: Soft, Nondistended, Nontender, Normal Bowel sounds + MSK: No gross deformities noted Skin: Warm, Dry, bruises in IV site. Neuro: Alert, Oriented to TPP, No Focal deficit Psych: Mood and Affect congruent, Cooperative on exam Results & Data Results & Data Vital Signs (Past 12 Hours) Vital Signs Temp Pulse Pulse Resp BP Pulse Ox O2 Del Method 11/05/25 02:58 36.9 C 79 18 96/60 L 95 Room Air 11/04/25 22:50 36.9 C 89 18 130/80 94 Room Air 11/04/25 22:34 101 H 11/04/25 19:02 36.7 C 84 18 125/79 95 Room Air Resident Activity Tracking Resident Involvement: Resident Care Provided Care Provided: Adult Hospital Medicine
[2025-11-05 08:27] LABS: Anion Gap 5.0 (3-11); Blood Urea Nitrogen 11.0 mg/dl (6-23); Calcium 8.7 mg/dl (8.6-10.3); Carbon Dioxide 28.0 mmol/L (21-32); Chloride 106.0 mmol/L (98-107); Creatinine Clr Calc Pharmacy 116.1 ml/min; Iron 101.0 mcg/dl (35-150); Potassium 3.2 mmol/L (3.5-5.1); Sodium 139.0 mmol/L (136-145); Total Iron Binding Cap Calc 235.0 mcg/dl (250-450); Transferrin 168.0 mg/dl (200-360); Transferrin (FE) Percent Satur 43.0 % (15-50)
[2025-11-05 08:38] LABS: Hematocrit (blood only) 27.4 % (37.0-47.0); Hemoglobin 9.3 g/dL (12.0-16.0); Mean Corpuscular Hemoglobin 31.4 pg (25.0-34.0); Mean Corpuscular Volume 92.6 fL (80.0-100.0); Platelet Count 31 K/uL (130-400); RDW Standard Deviation 58.4 fL (36.4-46.3); Red Blood Count 2.96 M/uL (4.20-5.40); White Blood Count 2.45 K/ul (4.8-10.8)
[2025-11-05 08:50] LABS: Folate (Folic Acid),Ser orPlas 7.44 ng/ml (>5.38)
[2025-11-05 08:51] LABS: Vitamin B12 1173.0 pg/ml (180-914)
[2025-11-05 09:05] LABS: Immature Granulocytes # (auto) 0.20 K/uL (0.01-0.20); Immature Granulocytes % (auto) 8.2 %
[2025-11-05] MEDS: POTASSIUM CHLORIDE CRTAB 20 MEQ TABCR PO SCH (09:18)
[2025-11-05 11:13] LABS: Dohle Bodies 2+; Ovalocytes 1+; Tear Drop Cells 1+; Toxic Granulation 2+; Toxic Vacuolation 1+
[2025-11-05] MEDS: POTASSIUM CHLORIDE CRTAB 20 MEQ TABCR PO ONE ×2 (14:49→20:13)
[2025-11-06 04:26] VITALS: TEMP 97.5
--- NOTE | 2025-11-06 07:11 | Hospitalist Progress Note ---
Date of Service November 06, 2025 Assessment & Plan (1) Neutropenia: (2) UTI (urinary tract infection): (3) Triple negative breast carcinoma: (4) Invasive ductal carcinoma of left breast: (5) Hyperlipemia: (6) Schizophrenia: (7) Anxiety: (8) Hypothyroidism: (9) Pancytopenia: Plan Colleen is a pleasant 69yo lady with PMH of triple negative breast cancer currently on carboplatin, paclitaxel, and pembrolizumab neoadjuvant chemotherapy and Schizophrenia who was referred to the ED by her primary oncologist due to abnormal labs. She was noted to have neutropenia and pancytopenia. 2 days prior to ED visit she had an episode of possible seizure like activity and was taken to [facility]. She was told she had blockage somewhere in vessel and was not given any blood thinner per patient. CT imaging( CT head, AT angio head and neck) notable for cerebral atrophy, Heterogeneous multinodular appearance of the left thyroid, but no angiographic abnormality in the head or neck. Admitted for inpatient management for Absolute neutrophil count being below 500. She is currently being treated with prophylactic antibiotic and Neupogen w/o identified source of infection. On 24 night she passed out and repeat hemoglobin was dropping down. Transfused 2 unit PPRBC after this, with 1U platelet pheresis, with improving hemodynamics and Hb/platelets. PANCYTOPENIA *2/2 myelosuppression effect of recent chemotherapy, last chemotherapy session 2 weeks ago. The combination ofcarboplatin and paclitaxel is know to cause myelosuppression as a common side effect. #Neutropenia -Fortunately patient w/o infection, No clinical signs of infection, no identified focus on multiple imaging. Labs: WBC:0.48, Neutrophil <500( on arrival) Improving, ANC: 1100s CRP: 1.48, Procal: Normal range Plan: - Continue Prophylactic regimen for ANC< 500. Goal: Neutrophils> 1000 for 2 consecutive days. - Continue Cefepime 2000mg bid IV Neupogen 480mg once daily. CGF will basically improve WBC counts only. Anticipate few days to have sustained improvement in ANC. Hence will continue daily. AM labs: daily CBC, BMP Continue neutropenia precaution; frequent handwashing, limit contact #Symptomatic Anemia - s/p 2 u transfusion - hb: 9.2 this AM, No ongoing loss. - I do not anticipate further transfusion at current status since there is no ongoing bleed and pt is farther away from last chemo. - She might benefit from prophylactic Neupogen in next chemo-- would defer to [facility] outpatient. #Severe Thrombocytopenia. - Platelet: 23k on 11/03/2025-----<38k ( .) Improved to 31K today( 11/04) S/P 1 U Platelets pheresis. Trend AM labs. #Segmental PE on OSH record. - CT chest was done on [facility] on 10/31 - Reviewed reporting on 11/02: possible small hypodense filling defect in posterior segmental branch of right lower lobe of lungs. - Patient not having any chest pain, SOB; no right heart strain clinically. Plan: Keep eye on sx. If symptomatic, will repeat CT PE protocol. Pt is not right candidate for heparin given her platelet number. #Questionable UTI on admission I do not think patient has UTI, despite being told she had UTI in previous hospital. Urine Cs: no growth in 24 hours, w/o symptoms of UTI. Pt does endorse h/o some leakage but dating back to couple months ago, which I do not think is because of UTI. #Triple negative breast cancer -follows with Dr. Davis at [facility]. Now on neoadjuvant chemotherapy. #Schizophrenia -continue haloperidol 0.5mg tid #Hypothyroidism -levothyroxine 25mcg/daily #Anxiety -sertraline 100mg q daily Dispo: Pending stabilization. Diet: regular VTE prophylaxis: SCDs/ thrombocytopenia precludes heparin/ encourage ambulation Admission and Anticipated Discharge Date Admission Date: November 01, 2025 Shaan Macias is 69 yo female recently diagnosed as triple negative breast cancer, under neoadjuvant chemotherapy currently. She presented to ED after she was informed about very low WBC numbers by her oncology team. Yesterday was eventful, she remained stable. She took shower by herself and she did well. She looks happy about thiss Today she continues to do better, was eating breakfast when I was in room. She did not have any lightheadedness, dizziness, headache, chest pain. She feels getting better overall, No fever, SOB, CP, No headache, no cough. Denies belly pain, burning urine, nausea, vomiting. No skin lesion, ear ache. Discussed with on bedside as well. He does not have any question for me today. Review of Systems Review of Systems: As per HPI Physical Exam Physical Exam: Constitutional: Frail appearing, No acute distress, Pale looking. Mediport on left superior chest. HEENT: Atraumatic, Normocephalic, No conjunctival injection, some old blood, no active bleeding. Oropharynx looks normal too. CVS: S1 S2 no murmur, Regular Rhythm, no LE edema Respiratory: BL equal air entry with NVBS. No rhonchi, wheezes, or crackles. No increased work of breathing GI: Soft, Nondistended, Nontender, Normal Bowel sounds + MSK: No gross deformities noted Skin: Warm, Dry, bruises in IV site. Neuro: Alert, Oriented to TPP, No Focal deficit Psych: Mood and Affect congruent, Cooperative on exam Results & Data Results & Data Vital Signs (Past 12 Hours) Vital Signs Temp Pulse Pulse Resp BP Pulse Ox O2 Del Method 11/06/25 07:10 36.4 C L 78 18 110/65 95 Room Air 11/06/25 04:23 36.4 C L 73 18 120/75 92 Room Air 11/05/25 23:08 36.8 C 86 18 105/65 93 Room Air 11/05/25 22:00 83 11/05/25 20:00 Room Air 11/05/25 19:47 37.1 C 85 18 111/68 94 Room Air
[2025-11-06 08:41] LABS: Hematocrit (blood only) 30.3 % (37.0-47.0); Hemoglobin 10.2 g/dL (12.0-16.0); Mean Corpuscular Hemoglobin 31.5 pg (25.0-34.0); Mean Corpuscular Volume 93.5 fL (80.0-100.0); Platelet Count 52 K/uL (130-400); RDW Standard Deviation 58.8 fL (36.4-46.3); Red Blood Count 3.24 M/uL (4.20-5.40)
[2025-11-06 08:54] LABS: Anion Gap 7.0 (3-11); Blood Urea Nitrogen 11.0 mg/dl (6-23); Calcium 9.1 mg/dl (8.6-10.3); Carbon Dioxide 25.0 mmol/L (21-32); Chloride 106.0 mmol/L (98-107); Creatinine Clr Calc Pharmacy 105.3 ml/min; Glucose 148.0 mg/dl (70-99(Fasting)); Potassium 4.0 mmol/L (3.5-5.1); Sodium 138.0 mmol/L (136-145)
[2025-11-06 09:11] LABS: White Blood Count 7.61 K/ul (4.8-10.8)
[2025-11-06 09:42] LABS: ALC (manual) 2.13 K/uL (1.2-3.4); ANC (manual) 4.49 K/uL (1.4-6.5); Blast # (manual) 0.08 K/uL (0-0); Dohle Bodies 2+; Ovalocytes 1+; Tear Drop Cells 1+; Toxic Granulation 3+
[2025-11-06 10:54] VITALS: BP 109/71; O2SAT 96
[2025-11-06] MEDS: OPTIRAY 320 125ml IV ONE (12:55)
--- NOTE | 2025-11-06 12:59 | Discharge Summary ---
Date of Service November 06, 2025 Admission HPI Per Admitting Provider Colleen is a pleasant 69yo lady with PMH of triple negative breast cancer currently on carboplatin, paclitaxel, and pembrolizumab neoadjuvant chemotherapy and Schizophrenia who was referred to the ED by her primary oncologist due to abnormal labs. The pt was in her usual state of health until Friday when she went for a PET scan. Afterwards, she had a headache and felt dizzy. Then yesterday, she was at a store when she fell and was suspected to have seizure- like activity. She was then transferred to another medical facility where they diagnosed her with a UTI but the pt was unable to pick remover the antibiotic as she was sent here due to the labs. She denies previous history of seizures, tongue- biting, tonic-clonic activity, and urination or defecation during that episode. She does have a history of feeling lightheaded upon standing or quick movements. She denies fever, chills, sick contacts, SOB, CP, abdominal pain, dysuria, skin rashes, or leg swelling. Admission Exam Per Admitting Provider GA: well groomed, well nourished in no apparent distress. AAOx3 HEENT: head normocephalic, atraumatic. EOMI. nares patent. RESP: vesicular breath sounds b/l. No wheezes, rhonchi, or rales CARDIOVASCULAR: S1 and S2 heard. No murmurs, rubs, or gallops. Radial pulses 2+ b/l RRR GI: Normoactive bowel sounds, no tenderness or masses felt to palpation MSK: no gross abnormalities or focal deficits SKIN: warm, dry, no edema PSYCH: appropriate mood and affect NEURO: no focal deficits. speech fluent. CN 2-12 intact. UE and LE strength 5/5 b/l Principal Diagnosis Pancytopenia secondary to Chemotherapy Segmental Pulmonary embolism Discharge Exam Constitutional: Frail appearing, No acute distress, Pale looking. Mediport on left superior chest. HEENT: Atraumatic, Normocephalic, No conjunctival injection, some old blood, no active bleeding. Oropharynx looks normal too. CVS: S1 S2 no murmur, Regular Rhythm, no LE edema Respiratory: BL equal air entry with NVBS. No rhonchi, wheezes, or crackles. No increased work of breathing GI: Soft, Nondistended, Nontender, Normal Bowel sounds + MSK: No gross deformities noted Skin: Warm, Dry, bruises in IV site. Neuro: Alert, Oriented to TPP, No Focal deficit Psych: Mood and Affect congruent, Cooperative on exam Discharge Data Allergies Allergy/AdvReac Type Severity Reaction Status Date / Time No Known Allergies Allergy Verified 07/14/25 07:15 Consultations 11/01/25 18:35 ED Decision to Admit Stat Ordered Studies 11/01/25 15:16 CT head/brain wo con Stat CTA head w con [CT angio head w con] Stat CTA neck with con [CT angio neck with con] Stat 11/01/25 21:12 CT Abdomen and Pelvis [CT abd pelvis wo con] Routine 11/02/25 21:58 CT head/brain wo con Urgent 11/06/25 12:36 CT angio chest PE protocol Stat Hospital Course (1) Neutropenia: (2) UTI (urinary tract infection): (3) Triple negative breast carcinoma: (4) Invasive ductal carcinoma of left breast: (5) Hyperlipemia: (6) Schizophrenia: (7) Anxiety: (8) Hypothyroidism: (9) Pancytopenia: (10) Neutropenia: Lolita Macias is a pleasant 69yo lady with PMH of triple negative breast cancer currently on carboplatin, paclitaxel, and pembrolizumab neoadjuvant chemotherapy and Schizophrenia who was referred to the ED by her primary oncologist due to abnormal labs. She was noted to have neutropenia and pancytopenia. 2 days prior to ED visit she had an episode of possible seizure like activity and was taken to [facility]. She was told she had blockage somewhere in vessel and was not given any blood thinner per patient. CT imaging( CT head, AT angio head and neck) notable for cerebral atrophy, Heterogeneous multinodular appearance of the left thyroid, but no angiographic abnormality in the head or neck. Admitted for inpatient management for Absolute neutrophil count being below 500. She is currently being treated with prophylactic antibiotic and Neupogen w/o identified source of infection. On 11.02 night she passed out and repeat hemoglobin was dropping down. Transfused 2 unit PPRBC after this, with 1U platelet pheresis, with improving hemodynamics and Hb/platelets. On 11/06: WBC, Neutrophils improved to 7k and 4k respectively. She got Neupogen 4 doses during hospital Patient stable to DC from Pancytopenia point. Pulmonary embolism - Asymptomatic segmental PE - Diagnosed on outside hospital; Confirmed on repeat imaging here in [facility] on 11/06/2025. - Patient has initial deranged hemodynamics as well as severe pancytopenia percluding need of pharmacological management. - On discharge stable enough to start anticoagulant. - Recommend Lovenox 1 mg / kg BID dose in DC - Patient left premise early; called in Lovenox to pharmacy after patient left, they relay they can teach patient how to inject lovenox. - Recommended to start Lovenox from tonight, patient adamants on the statement that she will collect her lovenox tomorrow morning. I explained the risk and she refused to start tonight. Discussed alternative pharmacy if feasible- refused to collect today. - Recommend to have labs CBC, BMP recheck on 11/08/2025 and Message sent to hemato oncology Dr. Davis on [facility]. Plan: - f.u on 11.08 for labs. - Continue Lovenox. - Discuss with Dr. Davis for dose adjustment depending on labs. Total Time Total Time Spent Total Time Spent (In Minutes): See attending's attestation Discharge Plan Discharge Items Patient Disposition: Home - Self-Care Reason For Visit: NEUTROPENIA Discharge Diagnosis: Pancytopenia 2/2 to Chemotherapy Condition on Discharge: Fair Activity: Resume your previous activity Non-emergency contact: Primary Care Provider and Therapist Call non-emergency contact if: your symptoms worsen Follow-up/Referrals: Jacquie Casas CRNP [Primary Care Provider] - Diet: Regular Ambulatory Orders: Basic Metabolic Panel (Routine) Timeframe: 20251108 Location: Determined by Patient Ordered By: Corrie Fernandez Complete Blood Count with Diff (Routine) Timeframe: 20251108 Location: Determined by Patient Ordered By: Corrie Fernandez Addtl Attending Provider Instructions: You were admitted to the hospital for your blood counts being really low secondary to chemotherapy. All of the three components of your blood including white blood, red blood and platelets were low enough that you needed medication for all of those. You received Blood transfusion for red blood and platelets and go injection medicine called Neupogen for few days for your white blood cell. We consulted with your oncology team and once your blood numbers were in goal, you were discharge. Decreased blood count can happen if either bone marrow doesn't make enough blood cells or something in the body destroys some of the blood cells -which can be related to a medicine, or a problem with the immune system. In your situation it is because of chemotherapy. Some people with pancytopenia have no symptoms like you. But people with severe pancytopenia can have symptoms, like Fever, Frequent or severe infections, Feeling very tired or weak, Shortness of breath, Bruising or bleeding. These are red flags that you need to consult your oncology doctor immediately. A discharge summary will be sent to your primary care physician to ensure continuity of care. Please bring this discharge summary with you to your next office appointment so that your provider can review it at that time. Medications: Your medication list has been reviewed and reconciled upon discharge to ensure accuracy and continuity of care. An updated list of all your medications is included with your hospital discharge paperwork. Please review this list closely and make note of any changes to your medications. NO CHANGE IN YOUR HOME MEDICATION. Follow up appointments: - Make a follow up appointment after 1 week with your oncology team to decide further chemotherapy. - Make a follow up appointment with your PCP within the next week. It is very important that you follow up with them shortly after discharge from the hospital. - Keep all of your follow up appointments as already scheduled. If you cannot make an appointment, notify your provider. CONTACT YOUR PRIMARY CARE PROVIDER if you experience any of the following: - Difficulty following your treatment plan - Difficulty taking any of your medications CALL 911 OR GO TO THE EMERGENCY DEPARTMENT if you experience any of the following: - Sudden, severe abdominal pain or nausea/vomiting - Severe chest pain or chest pain that radiates to your jaw or arm - Sudden, severe shortness of breath or difficulty breathing Pending Studies at Discharge: No Stand-Alone Forms: My [facility], Smoking Cessation Medications and DC Order Prescriptions: New enoxaparin [Lovenox] 80 mg/0.8 mL syringe 77 mg subcut DAILY 30 Days Qty: 23.1 0RF Continued haloperidol 0.5 mg tablet 0.5 mg PO TID sertraline 100 mg tablet 100 mg PO QAM levothyroxine 25 mcg tablet 25 mcg PO QAM olanzapine 2.5 mg tablet 0 mg PO DAILY Patient Comments: family member says she just takes this before chemo Discharge Orders: Discharge Order (Routine); Ordered 11/06/25 Ordered By: Lane Gutierrez/Other Patient Handouts: Blood Components, Neutropenia, Understanding Filgrastim, Immunocompromised Patients Dc Admission Data Admit Date/Time: 11/01/25 19:23 Attending Provider: Lane Reza Admit Provider: Arie Perry Primary Care Provider: Jacquie Casas Other Providers: Elias Tse Other Interventions: Discharge Summary Assessment (RN) Last Done: 11/06/25 14:17
--- NOTE | 2025-11-06 13:43 | CT Scan Report ---
EXAM: CT Angiography Chest With Intravenous Contrast INDICATION: Possible pulmonary embolus seen on outside study. TECHNIQUE: Axial computed tomographic angiography images of the chest with intravenous contrast. Sagittal and coronal reformatted images were created and reviewed. This CT exam was performed using one or more of the following dose reduction techniques: automated exposure control, adjustment of the mA and/or kV according to patient size, and/or use of iterative reconstruction technique. MIP reconstructed images were created and reviewed. CONTRAST: 55 ml of Optiray 320 was administered intravenously. COMPARISON: No relevant prior studies available. FINDINGS: Pulmonary arteries: There is a segmental pulmonary embolus to the medial right lower lobe of uncertain age series 4 image 82/223. Aorta: No acute change noted. No thoracic aortic aneurysm or dissection. Lungs and pleural spaces: There is scattered foci of airway thickening, ground glass density and linear atelectasis or scarring. No pleural effusion or pneumothorax. No mass. Heart: Enlarged shadow. No right heart strain. No significant pericardial effusion. Thyroid: Multiple nodules and calcifications in the left thyroid largest nodule in the inferior left lobe and isthmus measures about 2.5 x 1.8 cm. Bones/joints: No acute or atypical chronic changes. Soft tissues: No abnormality noted. Lymph nodes: No abnormality noted. No enlarged lymph nodes. Kidneys and ureters: Probable cyst in the upper pole of the left kidney not completely imaged and cannot be characterized. Tubes, lines and devices: Left subclavian central venous port terminates at the cavoatrial junction. IMPRESSION: 1. Single age indeterminant medial segmental pulmonary embolus to the right lower lobe noted. No right heart strain. 2. Mild pneumonitis not excluded. 3. Multinodular left thyroid. Nonemergent thyroid ultrasound recommended unless already known. ACT 112: N/A Electronically signed by Jessica Corbett 11-06-2025 13:43 PM
[2025-11-06 14:19] VITALS: PULSE 84
== END 2025-11-06 14:41 | disposition home or self-care (01) | DRG 808 ==
LOC: ED 14:39 → EDINP 19:23 → SUATTDRO 19:23 → 2W 11-02 04:32 → 2S 11-02 21:50